=== PATIENT | male | born 1970 | race Two or more races ===

== ENCOUNTER 2024-09-15 03:47 | Inpatient (IN) | payer OTHER ==
[~2024-09-15] VITALS: Ht 172.7 cm; Wt 90.7 kg
[2024-09-15] MEDS ORDERED: 0.9 % SODIUM CHLORIDE 1,000 ML IV ONE (04:45)
[2024-09-15] MEDS ORDERED: DOPamine HCL IN DEXTROSE 5 % 250 ML IV SCH (04:45)
[2024-09-15 05:08] LABS: HEMATOCRIT 45.7 % (39.0-48.0); HEMOGLOBIN 15.1 g/dL (13-16.00); MEAN CELL VOLUME 90.5 fL (80.0-100.00); MEAN CORPUSCULAR HEMOGLOBIN 29.9 pg (27.00-32.0); PLATELET COUNT 301 K/uL (150-450); RED BLOOD COUNT 5.05 M/uL (4.00-6.00); RED CELL DISTRIBUTION WIDTH 13.7 % (11.5-14.5)
[2024-09-15 05:19] LABS: PARTIAL THROMBOPLASTIN TIME 23.1 SECONDS (22.0-34.0); PROTHROMBIN TIME 10.9 SECONDS (9.0-11.5)
[2024-09-15 05:26] LABS: BILIRUBIN TOTAL 0.73 mg/dL (0.3-1.2); CALCIUM 9.1 mg/dL (8.5-10.1); GFR 56.69; GLOBULINA 3.5 G/DL (2.4-3.5); POTASSIUM 3.54 mEq/L (3.5-5.1); TOTAL PROTEIN 7.5 gm/dL (6.4-8.2)
[2024-09-15 05:27] LABS: CREATININE SERUM 1.33 mg/dL (0.70-1.30)
[2024-09-15 05:29] LABS: proBNP 33 pg/mL (0-39)
[2024-09-15] MEDS ORDERED: FAMOTIDINE/PF 20 MG/2 ML VIAL ONE (05:36)
[2024-09-15] MEDS ORDERED: ONDANSETRON HCL 2 MG/ML VIAL ONE (05:36)
[2024-09-15] MEDS ORDERED: FAMOTIDINE/PF 20 MG/2 ML VIAL IV PUSH STA (05:45)
[2024-09-15 05:46] LABS: TROPONIN I hs < 3.0 PG/ML (42.2-82.3)
[2024-09-15] MEDS ORDERED: ONDANSETRON HCL 2 MG/ML VIAL IV STA (05:46)
[2024-09-15] MEDS ORDERED: PANTOPRAZOLE SODIUM 40 MG in 0.9 % SODIUM CHLORIDE 8 ML IV PUSH SCH (10:32)
[2024-09-15] MEDS ORDERED: 0.9 % SODIUM CHLORIDE 1,000 ML IV SCH (10:45)
[2024-09-15 10:56] VITALS: BP 101/42; O2SAT 97
[2024-09-15] MEDS ORDERED: METRONIDAZOLE/SODIUM CHLORIDE 500 MG/100 ML PIGGYBACK IV ONE (11:36)
[2024-09-15] MEDS ORDERED: NOREPINEPHRINE BITARTRATE 8 MG in DEXTROSE 5 % IN WATER 250 ML IV SCH (12:15)
[2024-09-15] MEDS ORDERED: METRONIDAZOLE/SODIUM CHLORIDE 100 ML IV SCH (13:00)
[2024-09-15] MEDS ORDERED: NOREPINEPHRINE BITARTRATE 1 MG/ML AMPUL IV ONE (13:14)
[2024-09-15] MEDS ORDERED: ACETAMINOPHEN 160MG/5 ML BLIST.PACK PO PRN (13:30)
[2024-09-16] MEDS ORDERED: DOPamine HCL IN DEXTROSE 5 % 250 ML IV SCH (04:45)
[2024-09-16] MEDS ORDERED: ENOXAPARIN SODIUM 40 MG/0.4 ML SYRINGE SUBCUTANEO SCH (09:00)
== END 2024-09-15 13:56 | disposition left against medical advice (07) | DRG 316 ==
LOC: ER 03:50 → SEC-K 10:56
PROVIDERS: General Practice; ADMIT Student in an Organized Health Care Education/Training Program; ATTEND Student in an Organized Health Care Education/Training Program
DX: I95.9 Hypotension, unspecified (principal); R00.1 Bradycardia, unspecified; Z53.29 Procedure and treatment not carried out because of patient's decision for other reasons; R11.2 Nausea with vomiting, unspecified